=== PATIENT | female | born 1955 | race Hispanic/Latino ===

== ENCOUNTER → 2018-02-11 | Outpatient (CLI) | payer MEDICARE ==
[~2018-02-11] MED LIST: ALBUMIN (HUMAN) 25% 200 ML IV SCH
[2018-02-11 08:29] LABS: INR 1.15 (0.85-1.15); PARTIAL THROMBOPLASTIN TIME 29.4 SEC (26.3-35.5)
[2018-02-11 12:31] LABS: APPEARANCE BODY FLUID CLEAR (CLEAR); COLOR,BODY FLUID YELLOW (LT YELLOW); SPECIMENTYPE,BODY FLUID ASCITES; TOTAL VOLUME,BODY FLUID 100 mL
[2018-02-11 12:36] LABS: BODY FLUID RBC 764 /cu. mm.; BODY FLUID WBC 122 /cu. mm.
[2018-02-11 12:39] LABS: BF LYMPHOCYTE 16 %; BF MESOTHELIAL 29 %; BF MONOCYTE 9 %
== END | disposition home or self-care (01) ==
LOC: RAH 07:38
PROVIDERS: ATTEND Internal Medicine Medical Oncology
DX: R18.8 Other ascites (principal); Z79.01 Long term (current) use of anticoagulants
CPT/HCPCS: 36415; 49083; 85610; 85730; 87071; 87205; 89051; P9046